=== PATIENT | female | born 1960 | race African-American/Black ===

== ENCOUNTER 2016-03-27 18:29 | Emergency (ER) | payer BC ==
[2016-03-27] MEDS ORDERED: predniSONE 20 MG TAB ONE (18:47)
--- NOTE | 2016-03-27 20:14 | ERRECORD ---
[facility] EMERGENCY RECORD HPI GENERAL (18:54 JPIP) CHIEF COMPLAINT: Patient presents for evaluation of Lower lip swelling and fullness under the tongue. HISTORIAN: History provided by patient. MECHANISM OF INJURY: Unknown mechanism. LOCATION: Symptoms are localized, most severe to Lower lip. QUALITY: Pain is dull in nature. SEVERITY: Current severity of pain rated as 4/10. TIME COURSE: Sudden onset of symptoms, 2, days ago, There has been no change in the patient's symptoms over time, are constant. ASSOCIATED WITH: No associated symptoms, Associated with no SOB, no dysphagia, no dysphonia, no drooling, no stridor. EXACERBATED BY: Patient's condition exacerbated by nothing. RELIEVED BY: Patient's condition relieved by nothing. ROS (18:55 JPIP) CONSTITUTIONAL: Historian denies chills, denies fever. EYES: Historian denies eye pain, denies eye redness. ENT: Historian denies dysphagia, denies dysphasia, denies dysphonia, denies sore throat, denies stridor, denies voice changes. CARDIOVASCULAR: Historian denies chest pain. RESPIRATORY: Historian denies cough, denies shortness of breath, denies stridor, denies wheezing. GI: Historian denies nausea, denies vomiting. MUSCULOSKELETAL: Historian denies arthralgias, denies myalgias. SKIN: Historian denies rash, denies skin changes, denies skin lesions. NEUROLOGIC: Historian denies confusion, denies dizziness, denies mental status changes, denies paralysis, denies paresthesias. NOTES: All systems reviewed, negative except as described above. PAST MEDICAL HISTORY MEDICAL HISTORY: Flu vaccine not up to date, Tetanus not up to date, Pneumococcal vaccine not up to date, Past medical history includes history of hypertension, which has been treated, Patient is compliant. (18:37 KMOR) FEMALE SURGICAL HISTORY: . Surgical history of hysterectomy. (18:37 KMOR) PSYCHIATRIC HISTORY: No previous psychiatric history, Notes: denies. (18:37 KMOR) SOCIAL HISTORY: Patient drinks socially, Patient denies drug use, Patient has no smoking history. (18:37 KMOR) FAMILY HISTORY: Unknown family histroy. No known family hisotry. (18:37 KMOR) NOTES: Nursing records reviewed, Medication list reviewed. (18:57 JPIP) &a-1R&a+25V*p+0X*e7638R*c202B*c15G*c2P*p-0X&a-25V&a+1R Name: Sue Ramirez : 1960 F55 MedRec: [id number] AcctNum: [id number] Prepared: Edith Mar 27, 2016 19:22 by Interface Page 1 of 3 pMD [facility] EMERGENCY RECORD KNOWN ALLERGIES NKDA (Unconfirmed) No Known Drug Allergies CURRENT MEDICATIONS (18:35 KMOR) lisinopril: TABLET : Strength - 20 mg : ORAL Patient Dose: 20 mg Oral once a day. hydrochlorothiazide: TABLET : Strength - 25 mg : ORAL Patient Dose: 25 mg Oral once a day. VITAL SIGNS (18:35 KMOR) VITAL SIGNS: BP: 132/93, Pulse: 83, Resp: 18, Temp: 99.2 (Oral), Pain: 4, O2 sat: 94 on Room Air, Time: 03/27/2016 18:35. PHYSICAL EXAM (18:56 JPIP) CONSTITUTIONAL: Vital signs reviewed, Patient afebrile, Pulse normal, Blood pressure, hypertensive, Respiratory rate normal, Patient appears, uncomfortable, Patient alert and oriented to person, place and time. HEAD: Head exam included findings of head atraumatic, normocephalic. EYES: Eye exam included findings of eyelids normal to inspection, Conjunctiva normal, Sclera normal, no periorbital ecchymosis, no periorbital edema, no periorbital erythema. ENT: Pharynx exam normal, not injected, no swelling, symmetrical, Uvula exam normal, midline, no edema, Tonsil exam normal, Mouth exam included findings of, lower lip swelling, no erythema, no DC,. NECK: Neck exam included findings of normal range of motion, Trachea midline, no cervical adenopathy, no tenderness. RESPIRATORY CHEST: Respiratory exam included findings of no respiratory distress, Breath sounds clear, No wheezing, No rales, No rhonchi, Breath sounds not absent, Breath sounds not diminished. CARDIOVASCULAR: Cardiovascular exam included findings of heart rate regular rate and rhythm, Heart sounds normal, no murmurs, no rub. NEURO: [place] coma scale 15, Neuro exam findings include patient oriented to person, place and time, Speech normal. SKIN: Skin exam included findings of skin warm, dry, and normal in color, no rash. LYMPHATIC: Lymphatic exam included findings of cervical nodes normal, Submandibular normal. PSYCHIATRIC: Psychiatric exam included findings of patient oriented to person place and time, Normal affect. MEDICATION ADMINISTRATION SUMMARY Drug Name: cimetidine, Dose Ordered: 400 mg, Route: Oral, Status: &a-1R&a+25V*p+0X*h0042U*c202B*c15G*c2P*p-0X&a-25V&a+1R Name: Sue Ramirez : 1960 F55 MedRec: [id number] AcctNum: [id number] Prepared: Edith Mar 27, 2016 19:22 by Interface Page 2 of 3 pMD [facility] EMERGENCY RECORD Given, Time: 18:52 03/27/2016, Drug Name: Atarax, Dose Ordered: 25 mg, Route: Oral, Status: Given, Time: 18:52 03/27/2016, Drug Name: predniSONE oral, Dose Ordered: 60 mg, Route: Oral, Status: Given, Time: 18:51 03/27/2016, Detailed record available in Medication Service section. DOCTOR NOTES TEXT: Med review, patient is on lisinopril. 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 (18:58 JPIP) Advised to stop the lisinopril and start on the Atenolol. (19:00 JPIP) PROBLEM LIST No recorded problems DIAGNOSIS (19:06 JPIP) FINAL: PRIMARY: angioedema. PRESCRIPTION atenolol: TABLET : 50 mg : ORAL : Quantity: 1 Unit: tab(s) Route: ORAL Schedule: once a day (in the morning) Dispense: 30 May substitute. Refills: No Refills . (19:00 JPIP) NOTES: No refills. (19:00 JPIP) Atarax: TABLET : 25 mg : ORAL : Quantity: 1 Unit: tab(s) Route: ORAL Schedule: 2 times a day (before meals) Dispense: 20 May substitute. Refills: No Refills . (19:02 JPIP) NOTES: as needed for itching No refills. (19:02 JPIP) cimetidine: TABLET : 800 mg : ORAL : Quantity: 1 Unit: tab(s) Route: ORAL Schedule: once a day Dispense: 30 May substitute. Refills: No Refills . (19:02 JPIP) NOTES: No refills. (19:02 JPIP) DISPOSITION PATIENT: Disposition Type: Discharge, Condition: Good. (19:06 JPIP) Disposition: *Discharge Home, Patient left the department. (19:14 KMOR) Miles: CRYSIP=DO Kumar Joseph KMOR=BURT Zapien, Megan &a-1R&a+25V*p+0X*b5422K*c202B*c15G*c2P*p-0X&a-25V&a+1R Name: Sue Ramirez : 1960 F55 MedRec: [id number] AcctNum: [id number] Prepared: Edith Mar 27, 2016 19:22 by Interface Page 3 of 3 pMD MTDD
--- NOTE | 2016-03-27 20:17 | PICIS ---
[facility] EMERGENCY RECORD TRIAGE (18:33 KMOR) TRIAGE NOTES: Swelling to right side of mouth since Monday. (18:33 KMOR) PATIENT: NAME: Sue Ramirez, AGE: 55, GENDER: female, : Bryce 1960, TIME OF GREET: Sun Mar 27, 2016 18:29, PREFERRED LANGUAGE: German, ETHNICITY: Not or , ECODE BILLING MAP: [facility], SSN: [id number], Zip Code: [address], KG WEIGHT: 86.18, PHONE: , , , PERSON ID: [id number], PAYMENT: FLAKO Jaimes, PCP: DO RAYA KRISTEL. (18:33 KMOR) COMPLAINT: Swelling to mouth. (18:33 KMOR) ADMISSION: URGENCY: 3 Urgent, ADMISSION SOURCE: Home, TRANSPORT: CAR, BED: ER -03. (18:33 KMOR) ASSESSMENT: Assessment: A&OX4. RR EVEN AND UNLABORED., Symptoms began 2 days ago. (18:37 KMOR) PAIN: Patient complains of pain described as, pressure, on a scale 0-10 patient rates pain as 4, Location UNDER RIGHT SIDE OF TONGUE. (18:37 KMOR) IMMUNIZATIONS: Flu vaccine not up to date, Tetanus not up to date, Pneumococcal vaccine not up to date. (18:37 KMOR) SIRS SCORING: Heart Rate 55-109 (0), Temp range 96.8-101.1 (0), respiratory rate 12-24 (0), Mental Status altered: no (0), Infection or Suspected Infection: No. (18:37 KMOR) TRIAGE SCREENING: Patient denies suicidal ideation, Patient denies presence of domestic violence. (18:37 KMOR) LMP: LMP: Hysterectomy. (18:37 KMOR) PROVIDERS: TRIAGE NURSE: Megan Zapien RN. (18:33 KMOR) VITAL SIGNS: BP 132/93, Pulse 83, Resp 18, Temp 99.2, (Oral), Pain 4, O2 Sat 94, on Room Air, Time 03/27/2016 18:35. (18:35 KMOR) PREVIOUS VISIT ALLERGIES: NKDA. (18:33 KMOR) NKDA. (18:37 KMOR) KNOWN ALLERGIES NKDA (Unconfirmed) No Known Drug Allergies CURRENT MEDICATIONS (18:35 KMOR) lisinopril: TABLET : Strength - 20 mg : ORAL Patient Dose: 20 mg Oral once a day. hydrochlorothiazide: TABLET : Strength - 25 mg : ORAL Patient Dose: 25 mg Oral once a day. VITAL SIGNS (18:35 KMOR) VITAL SIGNS: BP: 132/93, Pulse: 83, Resp: 18, Temp: 99.2 (Oral), Pain: 4, O2 sat: 94 on Room Air, Time: 03/27/2016 18:35. NURSING ASSESSMENT: ENT (18:43 KMOR) &a-1R&a+25V*p+0X*m3792G*c202B*c15G*c2P*p-0X&a-25V&a+1R Name: Sue Ramirez : 1960 F55 MedRec: [id number] AcctNum: [id number] Prepared: Edith Mar 27, 2016 19:22 by Interface Page 1 of 6 pMD [facility] EMERGENCY RECORD CONSTITUTIONAL: Patient arrives ambulatory, Gait steady, History obtained from patient, Patient appears comfortable, Patient cooperative, Patient alert, Oriented to person, place and time, Skin warm, Skin dry, Skin normal in color, Mucous membranes pink, Mucous membranes moist, Patient is well-groomed, Patient complains of Swelling to mouth, Patient reports right sided mouth swelling started2 days ago, Reports sore throat with the swelling but no difficulty breathing. PAIN: pressure pain, to the right side of the throat, on a scale 0-10 patient rates pain as 4. ENT: Ear assessment findings include ear normal to inspection, Nasal assessment findings include nose normal to inspection, Sinuses normal, Nasal mucosa normal, Mouth and throat assessment findings include mouth, swelling to right side, Uvula normal, Tonsils normal, Mucous membranes pink, and moist, Able to swallow, Speech normal. RESPIRATORY/CHEST: Breath sounds clear, Respiratory assessment findings include respiratory effort easy, Respirations regular, Conversing normally, Neck and chest exam findings include trachea midline, Chest expansion equal, Chest movement symmetrical, no signs of distress. NOTES: Patient tolerated procedure well. NURSING PROCEDURE: DISCHARGE NOTE (19:14 KMOR) DISCHARGE: Patient discharged to home, ambulating without assistance, driving self, unaccompanied, Summary of Care printed/ provided, Transition record given to patient, Discharge instructions given to patient, Simple or moderate discharge teaching performed, by BURT Guzman, Discharge instructions and follow up reviewed with patient. Pt ambulatory to discharge desk. Patient instructed to discontinue linsiopril and to not take it again. Patient verbalized understanding., Prescriptions given and instructions on side effects given, Name of prescription(s) given: ATENOLOL, ATARAX, CIMETIDINE, Above person(s) verbalized understanding of discharge instructions and follow-up care. BELONGINGS: Belongings remain with patient, Valuables remain with patient. MEDICATION ADMINISTRATION SUMMARY Drug Name: cimetidine, Dose Ordered: 400 mg, Route: Oral, Status: Given, Time: 18:52 03/27/2016, Drug Name: Atarax, Dose Ordered: 25 mg, Route: Oral, Status: Given, Time: 18:52 03/27/2016, Drug Name: predniSONE oral, Dose Ordered: 60 mg, Route: Oral, Status: Given, Time: 18:51 03/27/2016, Detailed record available in Medication Service section. MEDICATION SERVICE Atarax: Order: Atarax (hydroxyzine HCl) - Dose: 25 mg &a-1R&a+25V*p+0X*d0555G*c202B*c15G*c2P*p-0X&a-25V&a+1R Name: Sue Ramirez : 1960 F55 MedRec: [id number] AcctNum: [id number] Prepared: Edith Mar 27, 2016 19:22 by Interface Page 2 of 6 pMD [facility] EMERGENCY RECORD : Oral Schedule: Now Ordered by: Gavin Kumar DO Entered by: DO Edith Lee Mar 27, 2016 18:42 , Acknowledged by: BURT Simpson Mar 27, 2016 18:45 Documented as given by: BURT Simpson Mar 27, 2016 18:52 Patient, Medication, Dose, Route and Time verified prior to administration. Amount given: 25mg, Site: Medication administered P.O., Correct patient, time, route, dose and medication confirmed prior to administration, Patient advised of actions and side-effects prior to administration, Allergies confirmed and medications reviewed prior to administration, Patient in position of comfort, Side rails up, Cart in lowest position, Family at bedside. : Follow Up : Response assessment performed, No signs or symptoms of allergic reaction noted. (19:16 KMOR) cimetidine: Order: cimetidine - Dose: 400 mg : Oral Schedule: Now Ordered by: Gavin Kumar DO Entered by: DO Edith Lee Mar 27, 2016 18:42 , Acknowledged by: Megan Zapien RN [place] Mar 27, 2016 18:45 Documented as given by: BURT Simpson Mar 27, 2016 18:52 Patient, Medication, Dose, Route and Time verified prior to administration. Amount given: 400mg, Site: Medication administered P.O., Correct patient, time, route, dose and medication confirmed prior to administration, Patient advised of actions and side-effects prior to administration, Allergies confirmed and medications reviewed prior to administration, Patient in position of comfort, Side rails up, Cart in lowest position, Family at bedside. : Follow Up : Response assessment performed, No signs or symptoms of allergic reaction noted. (19:16 KMOR) predniSONE oral: Order: predniSONE oral (prednisone) - Dose: 60 mg : Oral Schedule: Now Ordered by: Gavin Kumar DO Entered by: DO Edith Lee Mar 27, 2016 18:42 , Acknowledged by: Megan Zapien RN [place] Mar 27, 2016 18:45 Documented as given by: BURT Simpson Mar 27, 2016 18:51 Patient, Medication, Dose, Route and Time verified prior to administration. Amount given: 60mg, Site: Medication administered P.O., Correct patient, time, route, dose and medication confirmed prior to administration, Patient advised of actions and side-effects prior to administration, Allergies confirmed and medications reviewed prior to administration, Patient in position of comfort, Side rails up, Cart in lowest position, Family at bedside. : Follow Up : Response assessment performed, No signs or symptoms of allergic reaction noted. (19:16 KMOR) &a-1R&a+25V*p+0X*w2994E*c202B*c15G*c2P*p-0X&a-25V&a+1R Name: James Sue : 1960 F55 MedRec: [id number] AcctNum: [id number] Prepared: Edith Mar 27, 2016 19:22 by Interface Page 3 of 6 pMD [facility] EMERGENCY RECORD HPI GENERAL (18:54 JPIP) CHIEF COMPLAINT: Patient presents for evaluation of Lower lip swelling and fullness under the tongue. HISTORIAN: History provided by patient. MECHANISM OF INJURY: Unknown mechanism. LOCATION: Symptoms are localized, most severe to Lower lip. QUALITY: Pain is dull in nature. SEVERITY: Current severity of pain rated as 4/10. TIME COURSE: Sudden onset of symptoms, 2, days ago, There has been no change in the patient's symptoms over time, are constant. ASSOCIATED WITH: No associated symptoms, Associated with no SOB, no dysphagia, no dysphonia, no drooling, no stridor. EXACERBATED BY: Patient's condition exacerbated by nothing. RELIEVED BY: Patient's condition relieved by nothing. ROS (18:55 JPIP) CONSTITUTIONAL: Historian denies chills, denies fever. EYES: Historian denies eye pain, denies eye redness. ENT: Historian denies dysphagia, denies dysphasia, denies dysphonia, denies sore throat, denies stridor, denies voice changes. CARDIOVASCULAR: Historian denies chest pain. RESPIRATORY: Historian denies cough, denies shortness of breath, denies stridor, denies wheezing. GI: Historian denies nausea, denies vomiting. MUSCULOSKELETAL: Historian denies arthralgias, denies myalgias. SKIN: Historian denies rash, denies skin changes, denies skin lesions. NEUROLOGIC: Historian denies confusion, denies dizziness, denies mental status changes, denies paralysis, denies paresthesias. NOTES: All systems reviewed, negative except as described above. PAST MEDICAL HISTORY MEDICAL HISTORY: Flu vaccine not up to date, Tetanus not up to date, Pneumococcal vaccine not up to date, Past medical history includes history of hypertension, which has been treated, Patient is compliant. (18:37 KMOR) FEMALE SURGICAL HISTORY: . Surgical history of hysterectomy. (18:37 KMOR) PSYCHIATRIC HISTORY: No previous psychiatric history, Notes: denies. (18:37 KMOR) SOCIAL HISTORY: Patient drinks socially, Patient denies drug use, Patient has no smoking history. (18:37 KMOR) FAMILY HISTORY: Unknown family histroy. No known family hisotry. (18:37 KMOR) NOTES: Nursing records reviewed, Medication list reviewed. (18:57 JPIP) &a-1R&a+25V*p+0X*c5171O*c202B*c15G*c2P*p-0X&a-25V&a+1R Name: Sue Ramirez : 1960 F55 MedRec: [id number] AcctNum: [id number] Prepared: Edith Mar 27, 2016 19:22 by Interface Page 4 of 6 pMD [facility] EMERGENCY RECORD PHYSICAL EXAM (18:56 JPIP) CONSTITUTIONAL: Vital signs reviewed, Patient afebrile, Pulse normal, Blood pressure, hypertensive, Respiratory rate normal, Patient appears, uncomfortable, Patient alert and oriented to person, place and time. HEAD: Head exam included findings of head atraumatic, normocephalic. EYES: Eye exam included findings of eyelids normal to inspection, Conjunctiva normal, Sclera normal, no periorbital ecchymosis, no periorbital edema, no periorbital erythema. ENT: Pharynx exam normal, not injected, no swelling, symmetrical, Uvula exam normal, midline, no edema, Tonsil exam normal, Mouth exam included findings of, lower lip swelling, no erythema, no DC,. NECK: Neck exam included findings of normal range of motion, Trachea midline, no cervical adenopathy, no tenderness. RESPIRATORY CHEST: Respiratory exam included findings of no respiratory distress, Breath sounds clear, No wheezing, No rales, No rhonchi, Breath sounds not absent, Breath sounds not diminished. CARDIOVASCULAR: Cardiovascular exam included findings of heart rate regular rate and rhythm, Heart sounds normal, no murmurs, no rub. NEURO: [place] coma scale 15, Neuro exam findings include patient oriented to person, place and time, Speech normal. SKIN: Skin exam included findings of skin warm, dry, and normal in color, no rash. LYMPHATIC: Lymphatic exam included findings of cervical nodes normal, Submandibular normal. PSYCHIATRIC: Psychiatric exam included findings of patient oriented to person place and time, Normal affect. EVENTS TRANSFER: Triage to Emergency Emergency Room -03. (Edith Mar 27, 2016 18:33 KMOR) Removed from Emergency Emergency Room -03. (19:14 KMOR) O2SAT INTERPRETATION (18:58 JPIP) O2SAT: Continuous pulse oximetry, Oxygen saturation 94%, on room air, Oxygen saturation interpretation: Normal, No intervention required. DOCTOR NOTES TEXT: Med review, patient is on lisinopril. 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 (18:58 JPIP) Advised to stop the lisinopril and start on the Atenolol. (19:00 JPIP) PROBLEM LIST No recorded problems &a-1R&a+25V*p+0X*i9291O*c202B*c15G*c2P*p-0X&a-25V&a+1R Name: Sue Ramirez : 1960 F55 MedRec: [id number] AcctNum: [id number] Prepared: Edith Mar 27, 2016 19:22 by Interface Page 5 of 6 pMD [facility] EMERGENCY RECORD DIAGNOSIS (19:06 JPIP) FINAL: PRIMARY: angioedema. DISPOSITION PATIENT: Disposition Type: Discharge, Condition: Good. (19:06 JPIP) Disposition: *Discharge Home, Patient left the department. (19:14 KMOR) INSTRUCTION (19:06 JPIP) DISCHARGE: ANGIOEDEMA. FOLLOWUP: DO RAYA KRISTEL, [facility], [address] [place] [id number], [phone]. SPECIAL: Follow up with Primary Care Physician within 72 hours Return to the Emergency Department for increased symptoms problems or concerns. PRESCRIPTION atenolol: TABLET : 50 mg : ORAL : Quantity: 1 Unit: tab(s) Route: ORAL Schedule: once a day (in the morning) Dispense: 30 May substitute. Refills: No Refills . (19:00 JPIP) NOTES: No refills. (19:00 JPIP) Atarax: TABLET : 25 mg : ORAL : Quantity: 1 Unit: tab(s) Route: ORAL Schedule: 2 times a day (before meals) Dispense: 20 May substitute. Refills: No Refills . (19:02 JPIP) NOTES: as needed for itching No refills. (19:02 JPIP) cimetidine: TABLET : 800 mg : ORAL : Quantity: 1 Unit: tab(s) Route: ORAL Schedule: once a day Dispense: 30 May substitute. Refills: No Refills . (19:02 JPIP) NOTES: No refills. (19:02 JPIP) IMAGING *DISCHARGE INSTRUCTIONS RECEIPT: Image captured from scanner. (19:16 KMOR) *SUPPLY CHARGE SHEET: Image captured from scanner. (19:17 KMOR) ADMIN (19:17 KMOR) DIGITAL SIGNATURE: BURT Zapien Krista. Miles: JPIP=DO Kumar Joseph KMOR=BURT Zapien Krista &a-1R&a+25V*p+0X*u6299C*c202B*c15G*c2P*p-0X&a-25V&a+1R Name: Sue Ramirez : 1960 F55 MedRec: [id number] AcctNum: [id number] Prepared: Edith Mar 27, 2016 19:22 by Interface Page 6 of 6 pMD MTDD
== END 2016-03-27 19:08 | disposition home or self-care (01) ==
LOC: BURERS 18:29
DX: T78.3XXA Angioneurotic edema, initial encounter (principal); I10 Essential (primary) hypertension
CPT/HCPCS: 99283; J7506

== ENCOUNTER 2016-09-15 14:09 | Emergency (ER) | payer BC ==
[2016-09-15] MEDS ORDERED: Bupivacaine 0.5% 10 ML VIAL ONE (14:35)
== END 2016-09-15 14:43 | disposition home or self-care (01) ==
LOC: BURERS 14:09
DX: M54.12 Radiculopathy, cervical region (principal); I10 Essential (primary) hypertension; F17.210 Nicotine dependence, cigarettes, uncomplicated; Z79.899 Other long term (current) drug therapy
CPT/HCPCS: 20552; J2001; J3490

== ENCOUNTER 2016-09-19 08:39 | Outpatient (CLI) | payer BC ==
[2016-09-19 12:57] LABS: ALT (SGPT) 13 U/L (8-55); AST (SGOT) 14 U/L (5-34); Albumin 3.8 g/dL (3.5-5.0); Alkaline Phosphatase 75 U/L (40-150); Anion Gap 13 mmol/L (10-20); BUN (Urea Nitrogen) 10 mg/dL (9.8-20.1); Bilirubin, Total 0.5 mg/dL (0.2-1.2); Calc. Creatinine Clearance 0 mL/min (70-130); Calcium 9.3 mg/dL (7.8-10.44); Carbon Dioxide 27 mmol/L (22-29); Chloride 107 mmol/L (98-107); Cholesterol 174 mg/dl (< 200 Desired); Estimated GFR-MDRD Greater than 90; Globulin 3.9 g/dL (2.4-3.5); Glucose 79 mg/dL (70-105); HDL Cholesterol 35 mg/dL (>60 Neg Risk); LDL Cholesterol, Calculated 115 mg/dL; Potassium 4.1 mmol/L (3.5-5.1); Protein, Total 7.7 g/dL (6.0-8.3); Sodium 143 mmol/L (136-145); Triglycerides 120 mg/dL (Less than 150)
== END 2016-09-19 08:40 | disposition home or self-care (01) ==
LOC: HPCALD 08:39
PROVIDERS: ATTEND Family Medicine
DX: E78.1 Pure hyperglyceridemia (principal); B19.20 Unspecified viral hepatitis C without hepatic coma
CPT/HCPCS: 36415; 80053; 80061

== ENCOUNTER 2017-05-28 17:25 | Emergency (ER) | payer BC ==
[2017-05-28] MEDS ORDERED: AMOXicillin 250 MG CAP ONE (17:46)
[2017-05-28] MEDS ORDERED: Bupivacaine 0.5% 10 ML VIAL ONE (17:52)
== END 2017-05-28 18:05 | disposition home or self-care (01) ==
LOC: BURERS 17:25
DX: K05.219 Aggressive periodontitis, localized, unspecified severity (principal); I10 Essential (primary) hypertension; Z79.899 Other long term (current) drug therapy
CPT/HCPCS: 64450; J2001; J3490

== ENCOUNTER 2018-04-03 20:28 | Emergency (ER) | payer BC ==
[2018-04-03] MEDS ORDERED: Ibuprofen 200 MG TAB ONE (20:40)
[2018-04-03] MEDS ORDERED: AMOXicillin 250 MG CAP ONE (21:15)
[2018-04-03] MEDS ORDERED: Azithromycin 250 MG TAB ONE (21:15)
[2018-04-03] MEDS ORDERED: Amoxicillin/Potassium Clav 875 MG TAB ONE (21:16)
--- NOTE | 2018-04-03 21:56 | RAD ---
CHEST TWO VIEWS: 04/03/18 Comparison is made with a 05/26/10 study. There is a small opacity in the right base medially that is probably a combination of infiltrate and fat pad. There also appears to be some lingular infiltrates that I do not see on the prior study. The findings are suggestive of pneumonia. The upper lobes are c lear. There are no effusions. The heart size is normal. IMPRESSION: Opacity in the right base medially and in the lingula on the left. Pneumonia is suspected. POS: HOME
== END 2018-04-03 21:25 | disposition home or self-care (01) ==
LOC: BURERS 20:28
DX: J18.9 Pneumonia, unspecified organism (principal); I10 Essential (primary) hypertension; Z79.899 Other long term (current) drug therapy
CPT/HCPCS: 71046; 87804

== ENCOUNTER 2018-06-24 16:08 | Emergency (ER) | payer BC ==
[~2018-06-24 16:08] MED LIST: Iopamidol 370 76% 100 ML VIAL ONE
[2018-06-24 16:44] LABS: Bilirubin Small (Negative); Blood, Urine Trace (Negative); Glucose, Urine (Dipstick) Negative (Negative); Leukocyte Negative (Negative); Nitrite Negative (Negative); Protein, Urine (Dipstick) 30 mg/dL (Neg-Trace); RBC/HPF 0-3 HPF (0-3); Renal Epithelial None Seen HPF (0-3); Squamous Epithelial 0-3 HPF (0-3); Transitional Epithelial NONE SEEN HPF (0-3); WBC/HPF 0-3 HPF (0-3)
[2018-06-24 16:45] LABS: Bacteria/HPF Rare-Few HPF (None Seen); Crystals/HPF None Seen HPF (Negative); Hyaline Casts/LPF NONE SEEN LPF (0-3 Hyaline); Other Casts/LPF None Seen LPF (0-3 Hyaline); Oval Fat Bodies/HPF None Seen HPF (None Seen); Sperm/HPF None Seen HPF (None Seen); Trichomonas/HPF None Seen HPF (None Seen); Yeast-All Forms None Seen HPF (None Seen)
[2018-06-24 16:49] LABS: Clarity SLIGHTLY (Clear)
[2018-06-24 16:50] LABS: Specific Gravity, Urine 1.015 (1.005-1.030); pH, Urine 8.5 (5.0-9.0)
[2018-06-24 17:58] LABS: ALT (SGPT) 20 U/L (8-55); AST (SGOT) 19 U/L (5-34); Albumin 4.3 g/dL (3.5-5.0); Alkaline Phosphatase 66 U/L (40-150); Anion Gap 15 mmol/L (10-20); BUN (Urea Nitrogen) 9 mg/dL (9.8-20.1); Bilirubin, Total 0.8 mg/dL (0.2-1.2); Calc. Creatinine Clearance 0 mL/min (70-130); Calcium 9.8 mg/dL (7.8-10.44); Carbon Dioxide 24 mmol/L (22-29); Chloride 104 mmol/L (98-107); Estimated GFR-MDRD Greater than 90; Globulin 4.3 g/dL (2.4-3.5); Glucose 96 mg/dL (70-105); Lipase 5 U/L (8-78); Protein, Total 8.6 g/dL (6.0-8.3); Sodium 139 mmol/L (136-145)
[2018-06-24 17:59] LABS: Band 2 % (5-11); Hemoglobin 14.7 g/dL (12.0-16.0); Lymphocytes 12 % (21-51); MDiff Complete? YES; Mean Corpuscular HGB CONC 31.3 g/dL (32.0-36.0); Mean Corpuscular Hemoglobin 30.4 pg (27.0-31.0); Mean Corpuscular Volume 96.9 fL (78.0-98.0); Mean Platelet Volume 9.4 fL (7.4-10.4); Monocytes 4 % (0-10); Neutrophil 82 % (42-75); Platelet Count 162 thou/uL (130-400); RBC Distribution Width 12.2 % (11.5-14.5); Red Blood Cell (RBC) Count 4.86 mill/uL (4.20-5.40); White Blood Cell (WBC) Count 11.5 thou/uL (4.8-10.8)
[2018-06-24] MEDS ORDERED: Piperacillin/Tazobactam 4.5 GM VIAL ONE (19:03)
[2018-06-24] MEDS ORDERED: Fentanyl 100 MCG/2 ML VIAL ONE (19:03)
--- NOTE | 2018-06-24 19:11 | CT ---
CT ABDOMEN AND PELVIS WITH CONTRAST: 06/24/18 Axial slices were acquired, then coronal and sagittal reconstructions were done. The lung bases are clear. The liver, spleen, pancreas, gallbladder, adrenal glands and abdominal aort a appeared normal. There is a 2.9 cm cyst in the right kidney. No solid masses were appreciated. There is free air scattered throughout the abdomen and pelvis. It is seen in both upper quadrants and in the pelvis around the sigmoid colon. The appearance of the sigmoid with streaking and air around it suggests diverticulitis, therefore, is probably perforated. In addition to these findings, however, the patient's appendix is dilated and fluid-filled. It measur ed about 1.8 cm in diameter. Nevertheless, there was no streaking around it at all. There was no thi ckening of its wall. The cecum itself is quite fluid-filled. CT of the pelvis was remarkable for the sigmoid and appendiceal findings. I do not see any substantia l amount of fluid deep in the pelvis. IMPRESSION: 1. Free air in the abdomen and pelvis. The findings are most likely secondary to perforated dive rticulitis of the sigmoid colon. That section of colon is thick, has streaking around it, and small a elsa of free air around it. 2. Dilated fluid-filled appendix with no other findings of appendicitis. There is no hint of inf lammatory change around it, but the finding is noted, since it is abnormal and it should be kept in m ind. 3. 2.9 cm right renal cyst. Findings discussed with Dr. Kumar at 1853 on 06/24/18. Code CR POS: HOME
== END 2018-06-24 19:27 | disposition short-term general hospital (02) ==
LOC: BURERS 16:08
DX: K57.20 Diverticulitis of large intestine with perforation and abscess without bleeding (principal); K38.8 Other specified diseases of appendix; I10 Essential (primary) hypertension; F17.210 Nicotine dependence, cigarettes, uncomplicated; Z79.899 Other long term (current) drug therapy
CPT/HCPCS: 74177; 80053; 81003; 81015; 83690; 85025; 87086; 96374; 96375; J2543; J3010; Q9967

== ENCOUNTER 2018-10-13 08:36 | Emergency (ER) | payer BC ==
[2018-10-13] MEDS ORDERED: Ondansetron PF 4 MG/2 ML Vial ONE (09:16)
[2018-10-13] MEDS ORDERED: Fentanyl 100 MCG/2 ML VIAL ONE (09:16)
[2018-10-13 09:29] LABS: Eosinophils 4 % (0-10); Hemoglobin 12.4 g/dL (12.0-16.0); Lymphocytes 29 % (21-51); MDiff Complete? YES; Mean Corpuscular HGB CONC 31.4 g/dL (32.0-36.0); Mean Corpuscular Volume 95.6 fL (78.0-98.0); Mean Platelet Volume 7.9 fL (7.4-10.4); Monocytes 6 % (0-10); Neutrophil 61 % (42-75); Platelet Count 259 thou/uL (130-400); RBC Distribution Width 11.8 % (11.5-14.5); Red Blood Cell (RBC) Count 4.13 mill/uL (4.20-5.40); White Blood Cell (WBC) Count 7.7 thou/uL (4.8-10.8)
[2018-10-13 09:31] LABS: ALT (SGPT) 38 U/L (8-55); AST (SGOT) 19 U/L (5-34); Albumin 3.6 g/dL (3.5-5.0); Alkaline Phosphatase 84 U/L (40-150); Anion Gap 14 mmol/L (10-20); BUN (Urea Nitrogen) 7 mg/dL (9.8-20.1); Bilirubin, Total 0.2 mg/dL (0.2-1.2); Calc. Creatinine Clearance 0 mL/min (70-130); Calcium 9.5 mg/dL (7.8-10.44); Carbon Dioxide 26 mmol/L (22-29); Chloride 104 mmol/L (98-107); Estimated GFR-MDRD Greater than 90; Globulin 3.9 g/dL (2.4-3.5); Glucose 111 mg/dL (70-105); Lipase 35 U/L (8-78); Potassium 3.1 mmol/L (3.5-5.1); Protein, Total 7.5 g/dL (6.0-8.3); Sodium 141 mmol/L (136-145)
[2018-10-13 10:32] LABS: Bilirubin Negative (Negative); Blood, Urine Small (Negative); Clarity Slightly Cloudy (Clear); Glucose, Urine (Dipstick) Negative (Negative); Leukocyte Small (Negative); Nitrite Negative (Negative); Protein, Urine (Dipstick) Trace mg/dL (Neg-Trace); Urobilinogen 0.2 mg/dL (Less than 2)
[2018-10-13 10:38] LABS: Bacteria/HPF 1+ HPF (None Seen); Broad Cast None Seen LPF (None Seen); Calcium Oxalate Crystals None Seen HPF (None Seen); Cellular Cast None Seen LPF (None Seen); Epithelial Cast None Seen LPF (None Seen); Fatty Cast None Seen LPF (None Seen); Mucous/LPF 1+ LPF (<2+); Other Casts None Seen LPF (None Seen); Oval Fat Bodies/HPF None Seen HPF (None Seen); RBC/HPF 0-3 HPF (0-3); Red Blood Cell Cast None Seen LPF (None Seen); Renal Epithelial None Seen HPF (None Seen); Sperm/HPF None Seen HPF (None Seen); Squamous Epithelial 0-3 HPF (0-3); Transitional Epithelial None Seen HPF (None Seen); Trichomonas/HPF None Seen HPF (None Seen); Triple Phosphate Crystal None Seen HPF (None Seen); Unclassified Crystals None Seen HPF (None Seen); Waxy Cast None Seen LPF (None Seen); White Blood Cell Cast None Seen LPF (None Seen); Yeast-Budding None Seen HPF (None Seen); Yeast-Hyphae None Seen HPF (None Seen)
[2018-10-13] MEDS ORDERED: cefTRIAXone\\ROCEPHIN 1 GM VIAL ONE (10:53)
[2018-10-13] MEDS ORDERED: Magnesium Citrate 300 ML BOT ONE (11:04)
[2018-10-13] MEDS ORDERED: Bisacodyl 10 MG SUPP ONE (11:04)
--- NOTE | 2018-10-13 11:12 | CT ---
CT ABDOMEN AND PELVIS WITH IV CONTRAST: HISTORY: Generalized abdominal pain. History of colostomy take-down on 10/02/2018. COMPARISON: 06/24/2018. FINDINGS: There are minimal linear and patchy densities at each lung base, probably attributable to atelectasis . No pleural effusion is seen in either lung base. A 3 cm hypodense lesion is again seen within the mid portion of the right kidney demonstrating attenu ation coefficient most suggestive of a cyst. A smaller subcentimeter too small to characterize hypod ense lesion is again seen at the inferior pole right kidney. A few scattered tiny subcentimeter too small to characterize hypodense lesions are again seen in the left kidney. No enhancing renal mass i s appreciated. The liver, spleen, pancreas, and bilateral adrenal glands demonstrate a normal CT appearance. Vascular calcifications are seen in the infrarenal abdominal aorta and involving the iliac arteries. There are postsurgical changes seen in the region of the rectosigmoid junction related to anastomosis . The site of patient's prior colostomy is noted with stranding seen in this region likely related t o scarring. Midline scarring is seen in an infraumbilical location with a tiny fluid collection seen along the region of scarring which measures 2.2 cm. This may represent small postoperative fluid co llection. No gas is seen to definitely suggest abscess collection at this time. The urinary bladder is decompressed and not well evaluated. Evidence of prior hysterectomy is seen. Opacified small bowel is normal in caliber. There are loops of small bowel lateral to the colon, but this is likely related to prior postsurgical changes and partial colectomy. There are no findings t o suggest a bowel obstruction. No intraabdominal or pelvic free fluid is seen, but there is a very s mall curvilinear fluid collection seen in the lower left hemipelvis which measured 1.9 cm craniocauda l x 2.9 cm AP x 1 cm transverse which may represent small postoperative collection in this region. M inimal adjacent inflammatory changes are seen at the site of anastomosis, and there is a fluid collec tion adjacent to this region as well. Degenerative changes are seen in the spine, and there is evidence of bilateral hip osteoarthritis wit h degenerative changes seen at the pubic symphysis. There is prominent sclerosis seen at the pubis s ymphysis on the left, but this is stable from the prior exam. The exact etiology for the focal area of sclerosis is uncertain. This was not seen on plain film evaluations of the right hip on 08/10/2009. No additional lytic or sclerotic osseous lesions are appreciated. IMPRESSION: 1. Postsurgical changes related to partial colectomy. Anastomosis is seen in the pelvis with minima l adjacent inflammatory changes and a very tiny curvilinear fluid collection noted which could be rel ated to small postoperative collection. There is no percutaneously drainable abscess collection iden tified. 2. Mild inflammatory changes and increased density within the adipose subcutaneous soft tissues in l eft anterolateral pelvis likely related to site of prior colostomy and may represent mild scarring an d/or phlegmon in this region. 3. Midline infraumbilical scarring with tiny fluid collection along the area of scarring probably re lated to small postoperative collection. 4. Right renal cyst with too small to characterize hypodense lesions in each kidney. 5. Area of sclerosis involving the left pubic bone which is asymmetric to the contralateral right si de. The exact etiology is uncertain. While this could potentially related to degenerative changes, a bone scan may be helpful for further evaluation. POS: JASON
== END 2018-10-13 11:25 | disposition home or self-care (01) ==
LOC: BURERS 08:36
DX: N39.0 Urinary tract infection, site not specified (principal); K59.00 Constipation, unspecified; I10 Essential (primary) hypertension; F17.210 Nicotine dependence, cigarettes, uncomplicated; Z79.899 Other long term (current) drug therapy
CPT/HCPCS: 74177; 80053; 81003; 81015; 83605; 83690; 85025; 87086; 94760; 96365; 96375; J0696; J2405; J3010; Q9967

== ENCOUNTER 2018-12-24 02:21 | Emergency (ER) | payer BC ==
[2018-12-24] MEDS ORDERED: Ondansetron ODT 4 MG TAB ONE (02:42)
[2018-12-24] MEDS ORDERED: AMOXicillin 250 MG CAP ONE (02:42)
== END 2018-12-24 02:50 | disposition home or self-care (01) ==
LOC: BURERS 02:21
DX: J02.9 Acute pharyngitis, unspecified (principal); I10 Essential (primary) hypertension; F17.210 Nicotine dependence, cigarettes, uncomplicated; Z79.899 Other long term (current) drug therapy
CPT/HCPCS: 99283; Q0162